=== PATIENT | male | born 1930 | race Caucasian/White ===

== ENCOUNTER 2017-08-27 21:09 | Inpatient (IN) | payer MEDICARE ==
[~2017-08-27] VITALS: Ht 177.8 cm; Wt 80.5 kg
--- NOTE | ~2017-08-27 | OP ---
PATIENT NAME: DAISHA VARELA MEDICAL RECORD: [id number] :34 LOCATION:D.M2 D.2123 ADMISSION DATE:08/27/17 SURGEON: SYLVIE RYAN MD DATE OF OPERATION: 09/07/2017 PROCEDURES: 1. PTCA stent RCA. 2. PTCA stent PLV. 3. Selective coronary angiography. INDICATION: Angina and coronary artery disease. PROCEDURE IN DETAIL: After informed consent was obtained and after a detailed explanation of risks, benefits as well as alternative therapies, the patient elected to proceed with angiogram and angioplasty. The right femoral area was prepped and draped in normal sterile fashion. Right femoral artery was cannulated via modified Seldinger technique with placement of 7-German sheath. All catheters exchanged through this sheath. FINDINGS: The right coronary artery has 80% stenosis in the mid vessel. The PLV has a 95% stenosis. The PLV was addressed with a 2.5 x 38 mm Beverly, right coronary with a 3.5 x 22 mm Beverly. Result was 0% residual stenosis. OVERALL IMPRESSION: Successful percutaneous transluminal coronary angioplasty stent of the RCA and PLV, both going from 80% to 95% initial stenosis to 0% residual stenosis. TRANSINT:[id number] Voice Confirmation ID: [id number] DOCUMENT ID: [id number] SYLVIE RYAN MD at 1202 CC: [id number] DICTATION DATE: 09/07/17 1413 MASH GRINDER: 09/07/17 1426 DIS IN 09/08/17 [place] [address]
--- NOTE | ~2017-08-27 | DS ---
PATIENT:DAISHA VARELA :34 MEDICAL RECORD: [id number] DISCHARGE SUMMARY ADMISSION DATE: 08/27/17 DISCHARGE DATE: 09/08/17 DISCHARGE DIAGNOSES: 1. Angina. 2. Coronary artery disease. 3. PTCA stent left circumflex this admission. 4. Aortic stenosis. 5. Shortness of breath. 6. Hypertension. 7. Hyperlipidemia. HOSPITAL COURSE: Mr. Varela presents with anginal symptomatology, found to have significant disease of the left circumflex, underwent successful PTCA stent of the left circumflex, discharged home with the addition of aspirin and Plavix to his medical regimen. He will follow up with [facility] in 1 month. TRANSINT:[id number] Voice Confirmation ID: [id number] DOCUMENT ID: [id number] SYLVIE RYAN MD at 1351 CC: [id number] DICTATION DATE: 10/23/17 1012 SMOKING PIPE DRILLER AND THREADER: 10/24/17 0122 DIS IN 09/08/17 [place] [id number] [place] [address]
--- NOTE | ~2017-08-27 | HEMODYNAMI ---
PATIENT:DAISHA VARELA MEDICAL RECORD: [id number] : 34 LOCATION:[address] ADMISSION DATE: 08/27/17 Generatedon:09/07/201714:18 Patient name: DAISHA VARELA Patient #: [id number] SSN: : 1930 Date of study: 09/07/2017 Page: Of Hemodynamic Procedure Report Patient Data Patient Demographics Procedure consent was obtained First Name: DAISHA Gender: Male Last Name: NICHOLE : 1930 Patient #: [id number] Age: 87 year(s) Race: Unknown Additional ID: [id number] Contact details [address]: [address] [place] [address] State: [place] City: [place] Zip code: [address] Past Medical History Allergies: No known allergies Admission Admission Data Admission Date: 08/27/2017 Admission Time: 21:09 Room #: 2123 Procedure Procedure Types Cath Procedure PCI Procedure Coronary Stent Coronary Stent Initial Coronary Stent Additional Procedure Description Procedure Date Procedure Date: 09/07/2017 Procedure Start Time: 14:00 Procedure End Time: 14:12 Procedure Staff Name Function Manuel Morris MD Performing Physician Tonia Galicia RT Monitor Steffi Lockett RT Scrub Rivera Saravia RN Nurse Procedure Data Cath Procedure Fluoroscopy Diagnostic fluoroscopy Total fluoroscopy Time: 3.4 time: 3.4 min min Diagnostic fluoroscopy Total fluoroscopy dose: 540 dose: 540 mGy mGy Contrast Material Contrast Material Type Amount (ml) Isovue 300 54 Entry Location Entry Primary Successful Side Size Upsize Upsize Entry Closure Succes sful Closure Location (Fr) 1 (Fr) 2 (Fr) Remarks Device Remarks Femoral Right 7 Fr Exoseal artery Short Estimated blood loss: 5 ml Procedure Complications No complications Procedure Medications Medication Administration Route Dosage Oxygen NC 2 l/min Heparin Flush Bag added to field 2 bags (1000units/500ml NS) 0.9% NaCl I.V. 100 ml/hr Fentanyl I.V. 50 mcg Versed I.V. 1 mg Heparin Bolus I.V. 4000 units Fentanyl I.V. 50 mcg Versed I.V. 1 mg Hemodynamics Rest Heart Rate: 56 (bpm) Snapshots Pre Cath Intra NCS Post Cath Vital Signs Time Heart Resp SPO2 etCO2 NIBP (mmHg) Rhythm Pain Sedation Rate (ipm) (%) (mmHg) Status Level (bpm) 13:56:12 56 20 97 0 150/69(125) NSR 0 (11) 10(A) , No pain 14:00:32 56 17 98 0 155/70(121) NSR 0 (11) 9(A) , No pain 14:04:54 58 18 95 0 119/60(99) NSR 0 (11) 9(A) , No pain 14:09:04 56 16 95 0 130/65(105) NSR 0 (11) 9(A) , No pain Medications Time Medication Route Dose Verified Delivered Reason Notes Effectiveness by by 13:54:32 Oxygen NC 2 Manuel Stafford Per physician l/min Alexandra Saravia RN 13:54:41 Heparin Flush added 2 Manuel Stafford used for Bag to bags Alexandra Saravia RN procedure (1000units/500ml field NS) 13:54:54 0.9% NaCl I.V. 100 Manuel Stafford Per physician ml/hr Alexandra Saravia RN 13:57:37 Fentanyl I.V. 50 Manuel Stafford for sedation mcg Alexandra Saravia RN 13:57:43 Versed I.V. 1 mg Manuel Escamillay for sedation Alexandra Saravia RN 14:01:52 Heparin Bolus I.V. 4000 Manuel Stafford for units Alexandra Saravia RN anticoagulation 14:02:00 Fentanyl I.V. 50 Manuel Escamillay for sedation mcg Alexandra Saravia RN 14:02:07 Versed I.V. 1 mg Manuel Escamillay for sedation Alexandra Saravia RN Procedure Log Time Note 13:40:22 Tonia Galicia RT(R) sent for patient. Start room use. 13:54:08 Informed consent obtained and on chart 13:54:32 Oxygen 2 l/min NC was administered by Rivera Saravia RN; Per physician; 13:54:41 Heparin Flush Bag (1000units/500ml NS) 2 bags added to field was administered by Rivera Saravia RN; used for procedure; 13:54:43 Time tracking: Regular hours 13:54:47 Plan of Care:Hemodynamics will remain stable., Cardiac rhythm will remain stable., Comfort level will be maintained., Respiratory function will remain adequate., Patient/ family verbilizes understanding of procedure., Procedure tolerated without complication., Recovers from procedure without complications.. 13:54:52 Patient received from Med II to CCL 2 Alert and oriented. Tansferred to table in Supine position. 13:54:53 Warm blankets applied, and linda hugger turned on for patient comfort. 13:54:53 Correct patient and procedure confirmed by team. 13:54:54 0.9% NaCl 100 ml/hr I.V. was administered by Rivera Saravia RN; Per physician; 13:54:54 ECG and BP/O2 sat monitors applied to patient. 13:54:54 Vital chart was started 13:54:55 Baseline sample Acquired. 13:55:00 Rhythm: sinus rhythm 13:55:01 Full Disclosure recording started 13:55:05 H&P Date Dictated: 09/07/2017 Within 30 days and on chart., H&P Addendum completed by physician on day of procedure. (MUST COMPLETE FOR ALL OUTPATIENTS). 13:55:06 Pre-procedure instructions explained to patient. 13:55:07 Pre-op teaching completed and patient verbalized understanding. 13:55:09 Family in patients room. 13:55:11 Patient NPO since Midnight. 13:55:15 Is the patient allergic to Iodine/contrast media? No. 13:55:16 Was the patient premedicated? No 13:55:16 Is patient on blood thinner?Yes 13:55:19 ACC The patient was administered the following blood thiners within the last 24 hours: ACCPlavix 13:55:20 Patient diabetic? Yes. 13:55:22 If diabetic: On Metformin? No 13:55:24 Previous problem with sedation/anesthesia? No ? 13:55:26 Snore? Yes 13:55:26 Sleep apnea? Yes 13:55:27 Deviated septum? No 13:55:28 Opens mouth fully? Yes 13:55:29 Sticks out tongue? Yes 13:55:30 Airway obstruction? No ? 13:55:40 Dentures? Yes uppers in tight 13:55:44 Pre procedure: right dorsailis pedis pulse 1+ Palpable, but thready & weak; easily obliterated 13:55:46 Pre procedure: left dorsailis pedis pulse 1+ Palpable, but thready & weak; easily obliterated 13:55:56 Patient pain scale 0/10 ?. 13:56:08 IV patent on arrival in right forearm with 0.9% NaCl at O. 13:56:17 Lab results completed and on chart. 13:56:20 Right groin area was prepped with chlora-prep and draped in sterile fashion 13:56:21 Alarms reviewed by R. N. 13:56:21 Sharps counted by scrub and verified by R.N. 13:56:22 Physician arrived 13:56:22 --------ALL STOP TIME OUT------ 13:56:24 Final Timeout: patient, procedure, and site verified with staff and physician. All members of the team are in agreement. 13:56:26 Right groin site verified by team. 13:56:28 Physical assessment completed. ASA score P 2 - A patient with mild systemic disease as per Manuel Morris MD. 13:56:32 Sedation plan: IV Moderate Sedation Medication:Versed, Fentanyl 13:56:43 Use device set Femoral Dx 13:56:44 ACIST Syringe (05056) opened to sterile field. 13:56:44 Bag Decanter () opened to sterile field. 13:56:45 Medline Cath Pack ([id number]) opened to sterile field. 13:56:47 DIAGNOSTIC WIRE .035 260cm J wire (302685) opened to sterile field. 13:56:49 ACIST Hand Control (21282) opened to sterile field. 13:56:49 ACIST Manifold (35656) opened to sterile field. 13:56:51 Tegaderm 4 x 4 (1626W) opened to sterile field. 13:57:03 GUIDE 7FR HS II SH catheter ([id number]) opened to sterile field. 13:57:04 SHEATH 7FR [place] (LWW812) opened to sterile field. 13:57:15 CHOICE PT Extra Support 182cm wire ([id number]) opened to sterile field. 13:57:16 INFLATOR Merit BasixCompak (IP0142) opened to sterile field. 13:57:37 Fentanyl 50 mcg I.V. was administered by Rivera Saravia RN; for sedation; 13:57:43 Versed 1 mg I.V. was administered by Rivera Saravia RN; for sedation; 14:00:23 Procedure started. 14:00:29 Local anesthetic to right femoral artery with Lidocaine 2% by Manuel Morris MD.INITIAL ACCESS ONLY 14:00:38 A 7 Fr Short sheath was inserted into the Right Femoral artery 14:01:52 Heparin Bolus 4000 units I.V. was administered by Rivera Saravia RN; for anticoagulation; 14:02:00 Fentanyl 50 mcg I.V. was administered by Rivera Saravia RN; for sedation; 14:02:07 Versed 1 mg I.V. was administered by Rivera Saravia RN; for sedation; 14:02:28 6 Fr hs 2 sh guide catheter was inserted over the wire 14:02:36 choice pt wire advanced. 14:04:03 Inflation number: 1 A EUPHORA 2.5 x 30 Balloon ([id number]) was prepped and advanced across the R PAV, then inflated to 15 KALLIE for 0:10 (min:sec). 14:04:11 Inflation number: 2 The EUPHORA 2.5 x 30 Balloon ([id number]) was reinflated across the R PAV, to 15 KALLIE for 0:10 (min:sec). 14:05:06 Balloon removed over the wire. 14:05:53 Inflation Number: 3 A IAM RX 2.5 x 38 stent ([id number]) was prepped and advanced across the R PAV. The stent was deployed at 13 KALLIE for 0:10 (min:sec). 14:08:16 Inflation Number: 1 A IAM RX 3.5 x 22 stent ([id number]) was prepped and advanced across the Mid RCA. The stent was deployed at 15 KALLIE for 0:10 (min:sec). 14:08:19 Stent catheter was removed intact over wire. 14:08:20 Wire removed. 14:08:20 Guide catheter removed. 14:08:30 EXOSEAL 7Fr (EX700) opened to sterile field. 14:08:40 Sheath removed intact; hemostasis achieved with Exoseal to the Right Femoral artery. 14:08:42 Procedure ended.(Physican Out) 14:10:55 Fluoroscopy time 03.40 minutes. 14:11:01 Fluoroscopy dose: 540 mGy 14:11: Flurop Dose total: 540 14:11:07 Contrast amount:Isovue 300 54ml. 14:11:39 Sharps counted by scrub and verified by R.N. 14:11:41 Insertion/operative site no bleeding no hematoma. 14:11:44 Post-op/insertion site Right Femoral artery dressed using a 4 x 4 and Tegaderm. 14:11:46 Post right femoral artery:stable 14:11:48 Post Procedure Pulses reassessed and unchanged 14:11:50 Post procedure rhythm: unchanged. 14:11:53 Estimated blood loss: 5 ml 14:11:54 Post procedure instruction explained to patient.Patient verbalizes understanding. 14:11:54 Patient needs reinforcement of post procedure teaching. 14:12:14 Procedure type changed to Cath procedure, PCI procedure, Coronary Stent, Coronary Stent Initial, Coronary Stent Additional 14:12:14 Procedure and supply charges have been captured, reviewed, submitted and are correct. 14:12:18 Procedure Complication : No complications 14:12:20 Vital chart was stopped 14:12:22 See physician's report for complete and final results. 14:12:25 Report given to [facility] II. 14:12:27 Patient transfered to Med II with Stretcher. 14:12:29 Procedure ended. 14:12:29 Full Disclosure recording stopped 14:12:38 ACC-PCI Only Patient was given prescriptions, or instructed by Manuel Morris MD to start/continue the following medications upon discharge: Plavix 14:12:44 End room use (Document Last) Intervention Summary Intervention Notes Time ActionType Lesion and Equipment Used Action# Pressure Duration Attributes 14:04:03 Inflate R PAV EUPHORA 2.5 x 1 15 00:10 balloon 30 Balloon ([id number]) 14:04:11 Reinflate R PAV EUPHORA 2.5 x 2 15 00:10 balloon 30 Balloon ([id number]) 14:05:53 Place stent R PAV IAM RX 2.5 x 3 13 00:10 38 stent ([id number]) 14:08:16 Place stent Mid RCA IAM RX 3.5 x 1 15 00:10 22 stent ([id number]) Device Usage Item Name Manufacture Quantity Catalog Number Hospital Part Current M inimal Lot# / Charge Number Stock Stock Serial# Code ACIST Syringe Acist 1 86716 706550 222178 293897 2 0 (81175) Medical Systems Inc Bag Decanter Microtek 1 262020 21579 057781 5 () Medical Inc. Medline Cath Cardinal 1 [id number] 818165 15334 194617 5 Pack Health ([id number]) DIAGNOSTIC St Naman 1 281537 911507 616076 818081 3 0 WIRE .035 260cm J wire (375415) ACIST Hand Acist 1 05844 447664 998339 841451 5 Control Medical (61567) Systems Inc ACIST Manifold Acist 1 22707 534940 330043 434082 5 (54968) Medical Systems Inc Tegaderm 4 x 4 3M 1 1626W 703653 798759 105761 5 (1626W) GUIDE 7FR HS Medtronic 1 [id number] 736301 266587 600772 0 II SH catheter ([id number]) SHEATH 7FR Terumo 1 DJZ647 724868 863103 379257 5 [place] (HPB384) CHOICE PT [place] 1 [id number] 716507 139185 401062 5 Extra Support Scientific 182cm wire ([id number]) INFLATOR Merit Merit 1 VY7996 982063 585805 818047 1 5 Auto Secure (XQ3811) EUPHORA 2.5 x Medtronic 1 [id number] 065771 997942 960476 5 [id number] 30 Balloon ([id number]) IAM RX 2.5 x Medtronic 1 [id number] 725845 0539514 067310 5 [id number] 38 stent ([id number]) IAM RX 3.5 x Medtronic 1 [id number] 594916 9842600 170225 5 [id number] 22 stent ([id number]) EXOSEAL 7Fr Cardinal 1 EX700 301398 396022 344469 5 (EX700) Health Signature Audit [place] Stage Time Signature Unsigned Intra-Procedure 09/07/2017 Tonia Galicia 2:18:07 PM RT(R) Signatures Monitor : Tonia Galicia RT Signature : Date : Time : [address] [place] [address]
--- NOTE | ~2017-08-27 | HP ---
PATIENT: DAISHA VARELA MEDICAL RECORD: [id number] ACCOUNT: [id number] LOCATION:[address] : 32 ADMISSION DATE: 08/27/17 HISTORY AND PHYSICAL EXAMINATION DIAGNOSES: 1. Non-Q-wave myocardial infarction. 2. Coronary artery disease. 3. Status post coronary bypass graft surgery. 4. Status post aortic valve replacement tissue. HISTORY OF PRESENT ILLNESS: This is a gentleman who presented to [facility] with chest pain. The chest pain has been going on for quite some time, it came in an escalating worsening fashion. His troponin was positive. He is anemic with a hemoglobin of 9.0. PHYSICAL EXAMINATION: GENERAL APPEARANCE: Well-nourished, well-developed, appears stated age. Level of distress, comfortable. PSYCHIATRIC: Mental status, alert, normal affect. Orientation, oriented to time, place and person. EYES: Lids and conjunctiva, noninjected. No discharge, no pallor. ENT: Lips, teeth, gums, normal dentition. Oropharynx, no cyanosis, no pallor. NECK: Carotid arteries, bilateral normal upstroke, no bruits, no thrills. JUGULAR VEINS: No jugular venous pressure or distention. CERVICAL LYMPH NODES: Nontender, nonenlarged. THYROID: Not enlarged. Nontender. No nodules. LUNGS: Respiratory effort, unlabored. CHEST: Normal curvature. No thoracic deformity. No chest wall tenderness. Percussion, resonant. Auscultation, clear. No wheezes, no rales, no rhonchi. CARDIOVASCULAR: Precordial exam, nondisplaced. No heaves or pericardial thrills. Rate and rhythm, regular. Heart sounds, normal S1, normal S2. No S3, no gallop, no rub. Systolic murmur, not heard. Diastolic murmur, not heard. EXTREMITIES: No cyanosis, no edema. Peripheral pulses, full and equal in all extremities, except as noted. No bruits appreciated. ABDOMEN: Soft, nondistended. Normal aorta. No bruit. Nontender. No masses. Liver, nontender, no hepatomegaly. Spleen, nontender, no splenomegaly. MUSCULOSKELETAL: No joint tenderness. No joint swelling. No erythema. NEUROLOGICAL: Normal gait, normal strength, normal tone. SKIN: Warm and dry. REVIEW OF SYSTEMS: The patient reports easy bruising but reports no swollen glands. The patient reports no fever, no night sweats, no significant weight gain, no significant weight loss. No significant exercise tolerance. The patient reports no dry eyes, no irritation, no vision change. Patient reports no difficulty hearing and no ear pain. Patient reports no frequent nose bleeds or nose and sinus problems. Patient reports on arm pain on exertion. No shortness of breath while lying down. No history of heart murmur. Patient reports no cough, no wheezing or coughing up blood. Patient reports no abdominal pain, no vomiting. Normal appetite. No diarrhea and not vomiting blood. No nausea and no constipation. Patient reports no incontinence. No difficulty urinating. No hematuria. No increased frequency. Patient reports no muscle aches. No weakness, no arthralgias, no back pain. No swelling of the extremities. Patient reports no abnormal mole, no jaundice, no rashes. Reports no loss of consciousness. No weakness and no numbness. No seizures, dizziness, HISTORY AND PHYSICAL [id number] GREEN,DAISHA or headaches. The patient reports no depression, no sleep disturbance, feeling safe in a relationship and no alcohol abuse. Patient reports on fatigue. Reports no runny nose or sinus pressure. No itching, no hives, and no frequent sneezing. OVERALL IMPRESSION: Chest pain, non-Q-wave myocardial infarction and coronary artery disease. We will proceed with coronary angiography. Further care depends upon findings of the angiography. TRANSINT:[id number] Voice Confirmation ID: [id number] DOCUMENT ID: [id number] SYLVIE RYAN MD at 1153 CC: [id number] DICTATION DATE: 08/28/17 0757 DOWNSTREAM BIOMANUFACTURING TECHNICIAN: 08/28/17 0821 [facility] [place] [address] [place] [id number]
--- NOTE | ~2017-08-27 | EC ---
PATIENT:DAISHA VARELA DATE OF SERVICE: 08/27/17 SEX: M MEDICAL RECORD: [id number] DATE OF : 32 LOCATION:D.M2 D.212 AGE OF PATIENT: 87 ADMISSION DATE: 08/27/17 REFERRING PHYSICIAN: INTERPRETING PHYSICIAN: SYLVIE MORRIS MD ECHOCARDIOGRAM REPORT ECHO CHARGES 4 ECHO COMPLETE CLINICAL DIAGNOSIS: FL HX OF CABG/CAD ECHOCARDIOGRAPHIC MEASUREMENTS (adult normal given) AC root (d.<3.7cm) 3.5 cm LV Septum d (<1.2 cm> 1.6 cm Valve Excursion 1.5 cm LV Septum (systole) 1.7 cm Left Atria (s.<4.0cm> 4.5 cm LVPW d(<1.2cm) 1.3 cm RV (d.<2.3cm) 4.2 cm LVPW (sytole) 1.9 cm LV diastole(<5.6CM) 5.3 cm MV E-F(>70mm/sec) cm LV systole 3.4 cm LVOT Diameter 1.4 cm MV exc.(>10mm) 1.6 cm Est.ejection fraction (50-75%) % Pericardial Effusion N DOPPLER: LVIT cm/sec A 85.0 cm/sec E 112 cm/sec LA cm/sec RVSP 23 mmHg LVOT 235 cm/sec AOP1/2T m/s Asc. Ao 291 cm/sec RVOT 77 cm/sec RA cm/sec PA 137 cm/sec AV Gradient Peak 33.98mmHg AV Mean 21.11mmHg AV Area 1.4 cm MV Gradient Peak 6.99 mmHg MV Mean 2.93 mmHg MV Area cm COMMENTS: Diagnostics Tech: Tera HERNANDEZ Metal Extrusion Supervisor: 1 Dr. Morris TAPE# PACS DATE OF SERVICE: 08/28/2017 FINDINGS: 1. Left ventricular chamber size is within normal limits. Left ventricular systolic function is normal. Overall ejection fraction estimated at 55%. 2. Left atrium is enlarged at 4.5 cm. Right atrium and right ventricular chamber sizes are as well mildly dilated. 3. Valvular structures: Aortic valve demonstrates mild calcific aortic stenosis. Valve area calculates to 1.4 cm-squared. There is a gradient of 34 mm across the valve. The remaining valvular structures have normal structure ECHOCARDIOGRAM REPORT [id number] DAISHA VARELA and ike. 4. Doppler interrogation elsewise reveals moderate mitral regurgitation, mild tricuspid regurgitation. No other valvular insufficiency or stenosis. Pulmonary systolic pressure estimated at 23 mmHg. 5. No evidence of pericardial effusion or left ventricular thrombus. TRANSINT:[id number] Voice Confirmation ID: [id number] DOCUMENT ID: [id number] SYLVIE MORRIS MD at 1153 CC: [id number] DICTATION DATE: 08/28/17 1341 PORTABLE TRACK LINE MARKER: 08/28/17 1434 ADM IN [place] [id number] [place] [address]
--- NOTE | ~2017-08-27 | HEMODYNAMI ---
PATIENT:DAISHA VARELA MEDICAL RECORD: [id number] : 34 LOCATION[facility] [facility] [id number] ADMISSION DATE: 08/27/17 Generatedon:08/28/201716:01 Patient name: DAISHA VARELA Patient #: [id number] SSN: : 1930 Date of study: 08/28/2017 Page: Of Hemodynamic Procedure Report Patient Data Patient Demographics Procedure consent was obtained First Name: DAISHA Gender: Male Last Name: NICHOLE : 1930 Patient #: [id number] Age: 87 year(s) Race: Unknown Additional ID: [id number] Contact details [address]: [address] [place] [address] State: [place] City: [place] Zip code: [address] Past Medical History Allergies: No known allergies Admission Admission Data Admission Date: 08/27/2017 Admission Time: 21:09 Room #: [facility] Lab Results Lab Result Date: 08/28/2017 Lab Result Time: 0:00 Biochemistry Name Units Result Min Max BUN mg/dl 38 --(----)-* 7 18 Creatinine mg/dl 1.8 --(----)-* 0.6 1.3 CBC Name Units Result Min Max Hemoglobin g/dl 9 *-(----)-- 13.5 17.5 Procedure Procedure Types Cath Procedure Diagnostic Procedure LHC LHC w/Coronaries w/Grafts PCI Procedure Coronary Stent Coronary Stent Initial Miscellaneous Procedures Moderate Sedation up to 15 minutes Moderate Sedation up to 30 minutes Procedure Description Procedure Date Procedure Date: 08/28/2017 Procedure Start Time: 15:31 Procedure End Time: 15:57 Procedure Staff Name Function Rivera Saravia RN Nurse Manuel Morris MD Performing Physician Michael Villeda RT Scrub Monalisa Sullivan RT Monitor Steffi Lockett RT Monitor Procedure Data Cath Procedure Fluoroscopy Diagnostic fluoroscopy Total fluoroscopy Time: 3.7 time: 3.7 min min Diagnostic fluoroscopy Total fluoroscopy dose: 343 dose: 343 mGy mGy Contrast Material Contrast Material Type Amount (ml) Isovue 300 147 Entry Location Entry Primary Successful Side Size Upsize Upsize Entry Closure Succes sful Closure Location (Fr) 1 (Fr) 2 (Fr) Remarks Device Remarks Femoral Right 5 Fr 6 Fr Exoseal artery Short Estimated blood loss: 10 ml Diagnostic catheters Device Type Used For End Catheter Placement MULTIPACK Pigtail 5 Fr Procedure catheter MULTIPACK JL 4.0 5Fr Procedure catheter MULTIPACK 3DRC 5Fr Procedure catheter DIAGNOSTIC AR 1 MOD 5Fr Procedure catheter ([id number]) Procedure Complications No complications Procedure Medications Medication Administration Route Dosage Oxygen NC 2 l/min Heparin Flush Bag added to field 2 bags (1000units/500ml NS) 0.9% NaCl I.V. 100 ml/hr Fentanyl I.V. 50 mcg Versed I.V. 1 mg Fentanyl I.V. 50 mcg Versed I.V. 1 mg Heparin Bolus I.V. 4000 units Integrilin (Bolus I.V. 8.5 ml 2mg/ml) Plavix P.O. 600 mg Hemodynamics Rest HGB: 9 (g/dl) Heart Rate: 75 (bpm) Snapshots Pre Cath Intra NCS Post Cath Vital Signs Time Heart Resp SPO2 etCO2 NIBP (mmHg) Rhythm Pain Sedation Rate (ipm) (%) (mmHg) Status Level (bpm) 15:05:51 75 17 90 1.5 140/75(113) NSR 0 (11) 10(A) , No pain 15:10:33 70 20 86 0 142/66(103) NSR 0 (11) 10(A) , No pain 15:15:14 71 22 93 3.7 129/70(109) NSR 0 (11) 10(A) , No pain 15:19:53 70 26 89 0 125/67(99) NSR 0 (11) 10(A) , No pain 15:25:10 66 19 92 0 143/65(109) NSR 0 (11) 10(A) , No pain 15:29:53 65 17 80 24.8 136/59(96) NSR 0 (11) 9(A) , No pain 15:34:34 69 17 84 16.5 134/65(102) NSR 0 (11) 9(A) , No pain 15:39:12 72 17 90 18 137/70(101) NSR 0 (11) 9(A) , No pain 15:43:53 74 16 83 26.2 128/67(100) NSR 0 (11) 9(A) , No pain 15:48:31 73 16 88 15.7 142/70(108) NSR 0 (11) 9(A) , No pain 15:53:12 74 16 91 19.5 144/72(112) NSR 0 (11) 9(A) , No pain 15:55:33 73 15 91 19.5 134/72(109) NSR 0 (11) 9(A) , No pain Medications Time Medication Route Dose Verified Delivered Reason Notes Effectiveness by by 14:42:35 Heparin Flush added 2 Manuel Rivera used for Bag to bags Alexandra Saravia RN procedure (1000units/500ml field NS) 15:07:26 Oxygen NC 2 Manuel Stafford Per physician l/min Alexandra Saravia RN 15:07:49 0.9% NaCl I.V. 100 Manuel Stafford Per physician ml/hr Alexandra Saravia RN 15:26:08 Fentanyl I.V. 50 Manuel Escamillay for sedation mcg Alexandra Saravia RN 15:26:15 Versed I.V. 1 mg Manuel Stafford for sedation Alexandra Saravia RN 15:32:51 Fentanyl I.V. 50 Manuel Escamillay for sedation mcg Alexandra Saravia RN 15:32:57 Versed I.V. 1 mg Manuel Stafford for sedation Alexandra Saravia RN 15:44:51 Heparin Bolus I.V. 4000 Manuel Stafford for units Alexandra Saravia RN anticoagulation 15:45:03 Integrilin I.V. 8.5 Manuel Stafford for (Bolus 2mg/ml) ml Alexandra Saravia RN anticoagulation 15:54:09 Plavix P.O. 600 Manuel Stafford for mg Alexandra Saravia RN antiplatelet therapy Procedure Log Time Note 14:40:59 Informed consent obtained and on chart 14:41:21 Diagnostic Cath status Elective 14:41:22 Time tracking: Regular hours 14:41:25 Plan of Care:Hemodynamics will remain stable., Cardiac rhythm will remain stable., Comfort level will be maintained., Respiratory function will remain adequate., Patient/ family verbilizes understanding of procedure., Procedure tolerated without complication., Recovers from procedure without complications.. 14:42:35 Heparin Flush Bag (1000units/500ml NS) 2 bags added to field was administered by Rivera Saravia RN; used for procedure; 14:55:30 Patient received from Med II to CCL 1 Alert and oriented. Tansferred to table in Supine position. 14:55:31 Warm blankets applied, and linda hugger turned on for patient comfort. 14:55:32 Correct patient and procedure confirmed by team. 14:55:33 ECG and BP/O2 sat monitors applied to patient. 14:57:20 H&P Date Dictated: 08/27/2017 Within 30 days and on chart.. 15:04:53 Vital chart was started 15:04:56 Baseline sample Acquired. 15:05:02 Rhythm: sinus rhythm 15:05:03 Full Disclosure recording started 15:05:04 Pre-op teaching completed and patient verbalized understanding. 15:05:04 Pre-procedure instructions explained to patient. 15:05:07 Family in patients room. 15:05:08 Patient NPO since Midnight. 15:05:13 Patient allergic to No known allergies 15:05:15 Is the patient allergic to Iodine/contrast media? No. 15:05:17 Patient diabetic? Yes. 15:05:19 If diabetic: On Metformin? No 15:05:22 Previous problem with sedation/anesthesia? No ? 15:05:23 Snore? Yes 15:05:24 Sleep apnea? No 15:05:25 Deviated septum? No 15:05:26 Opens mouth fully? Yes 15:05:27 Sticks out tongue? Yes 15:05:29 Airway obstruction? No ? 15:05:35 Dentures? Yes IN TIGHT 15:05:39 Pre procedure: right dorsailis pedis pulse 2+ Normal; easily identifiable; not easily obliterated 15:05:43 Patient pain scale 0/10 ?. 15:05:54 IV patent on arrival in right wrist with 0.9% NaCl at [facility]. 15:06:33 Lab Result : Hemoglobin 9 g/dl 15:06:33 Lab Result : Creatinine 1.8 mg/dl 15:06:33 Lab Result : BUN 38 mg/dl 15:06:48 PATIENT RECEIVED TRANSFUSION 15:06:52 Lab results completed and on chart. 15:06:56 Right groin area was prepped with chlora-prep and draped in sterile fashion 15::58 Sharps counted by scrub and verified by R.N. 15::58 Alarms reviewed by R. N. 15:: Procedure type changed to Cath procedure, Diagnostic procedure, LHC, LHC w/Coronaries w/Grafts, PCI procedure, Coronary Stent, Coronary Stent Initial, Miscellaneous Procedures, Moderate Sedation up to 15 minutes, Moderate Sedation up to 30 minutes 15::26 Oxygen 2 l/min NC was administered by Rivera Saravia RN; Per physician; 15:07:49 0.9% NaCl 100 ml/hr I.V. was administered by Rivera Saravia RN; Per physician; 15:12:04 Rivera aSravia RN sent for patient. Start room use. 15:13:02 Physician paged 15:22:38 --------ALL STOP TIME OUT------ 15:22:54 Zero performed for pressure channel P1 15:25:37 Physician arrived 15:25:39 Final Timeout: patient, procedure, and site verified with staff and physician. All members of the team are in agreement. 15:25:43 Right groin site verified by team. 15:26:00 Physical assessment completed. ASA score P 2 - A patient with mild systemic disease as per Manuel Morris MD. 15:26:04 Sedation plan: IV Moderate Sedation Medication:Versed, Fentanyl 15:26:08 Fentanyl 50 mcg I.V. was administered by Rivera Saravia RN; for sedation; 15::15 Versed 1 mg I.V. was administered by Rivera Saravia RN; for sedation; 15:28:17 Use device set Femoral Dx 15:28:19 ACIST Syringe (53328) opened to sterile field. 15:28:24 Bag Decanter (2002S) opened to sterile field. 15:28:27 Medline Cath Pack ([id number]) opened to sterile field. 15:28:28 SHEATH 5FR [place] (ODB326) opened to sterile field. 15:28:29 DIAGNOSTIC WIRE .035 260cm J wire (302001) opened to sterile field. 15:28:31 ACIST Hand Control (03727) opened to sterile field. 15:28:32 DIAGNOSTIC Multipack 5Fr catheter set (DL0683) opened to sterile field. 15:28:32 ACIST Manifold (49203) opened to sterile field. 15:28:33 Tegaderm 4 x 4 (1626W) opened to sterile field. 15:30:52 Procedure started. 15:31:05 Local anesthetic to right femoral artery with Lidocaine 2% by Manuel Morris MD.INITIAL ACCESS ONLY 15:32:04 A 5 Fr sheath was inserted into the Right Femoral artery 15:32:32 j wire advanced. 15:32:51 Fentanyl 50 mcg I.V. was administered by Rivera Saravia RN; for sedation; 15:32:57 Versed 1 mg I.V. was administered by Rivera Saravia RN; for sedation; 15:32:58 A MULTIPACK Pigtail 5 Fr catheter was advanced over the wire and used for Procedure. 15:35:25 LV angiography performed. 15:35:59 EF : 50 % 15:36:01 Catheter removed. 15:36:12 A MULTIPACK JL 4.0 5Fr catheter was advanced over the wire and used for Procedure. 15:36:17 LCA angiography performed. 15:37:28 Catheter removed. 15:37:40 A MULTIPACK 3DRC 5Fr catheter was advanced over the wire and used for Procedure. 15:38:43 NARVAEZ angiography performed. 15:39:40 RCA angiography performed. 15:39:44 Catheter removed. 15:39:59 A DIAGNOSTIC AR 1 MOD 5Fr catheter ([id number]) was advanced over the wire and used for Procedure. 15:40:36 SVG angiography performed. 15:40:48 SVG to RCA angiography performed. 15:41:38 Catheter removed. 15:42:03 INFLATOR Merit BasixCompak (KC3909) opened to sterile field. 15:42:04 CHOICE PT Extra Support 182cm wire ([id number]) opened to sterile field. 15:42:05 SHEATH 6FR [place] (RRS357) opened to sterile field. 15:42:27 Proceeding to intervention. 15:42:37 Sheath upsized to a 6 Fr Short. 15:43:21 6 Fr xbLAD4 guide catheter was inserted over the wire 15:43:32 CHOICE PT EX wire advanced. 15:44:49 GUIDE 6FR XBLAD 4.0 catheter ([id number]) opened to sterile field. 15:44:51 Heparin Bolus 4000 units I.V. was administered by Rivera Saravia RN; for anticoagulation; 15:44:56 Wire advanced across lesion. 15:45:03 Integrilin (Bolus 2mg/ml) 8.5 ml I.V. was administered by Rivera Saravia RN; for anticoagulation; 15:46:48 Inflation number: 1 A EUPHORA 2.5 x 20 Balloon ([id number]) was prepped and advanced across the Mid CX, then inflated to 13 KALLIE for 0:11 (min:sec). 15:47:05 Inflation number: 2 The EUPHORA 2.5 x 20 Balloon ([id number]) was reinflated across the Mid CX, to 17 KALLIE for 0:11 (min:sec). 15:49:01 Inflation Number: 3 A IAM RX 2.5 x 26 stent ([id number]) was prepped and advanced across the Mid CX. The stent was deployed at 13 KALLIE for 0:10 (min:sec). 15:49:32 Stent catheter was removed intact over wire. 15:51:21 Inflation Number: 1 A IAM RX 3.0 x 15 stent ([id number]) was prepped and advanced across the Prox CX. The stent was deployed at 17 KALLIE for 0:09 (min:sec). 15:51:30 EXOSEAL 6Fr (EX600) opened to sterile field. 15:51:34 Stent catheter was removed intact over wire. 15:51:35 Wire removed. 15:51:36 Guide catheter removed. 15:51:45 Sheath removed intact; hemostasis achieved with Exoseal to the Right Femoral artery. 15:53:34 Procedure ended.(Physican Out) 15:54:09 Plavix 600 mg P.O. was administered by Rivera Saravia RN; for antiplatelet therapy; 15:54:30 Fluoroscopy time 03.70 minutes. 15:54:45 Fluoroscopy dose: 343 mGy 15:54:45 Flurop Dose total: 343 15:54:52 Contrast amount:Isovue 300 147ml. 15:54:58 Insertion/operative site no bleeding no hematoma. 15:55:01 Post-op/insertion site Right Femoral artery dressed using a 4 x 4 and Tegaderm. 15:55:05 Post right femoral artery:stable 15:55:08 Post Procedure Pulses reassessed and unchanged 15:55:12 Post-procedure physical assessment completed. ASA score P 2 - A patient with mild systemic disease as per Manuel Morris MD. 15:55:15 Post procedure rhythm: sinus rhythm 15:55:19 Estimated blood loss: 10 ml 15:55:21 Post procedure instruction explained to patient.Patient verbalizes understanding. 15:55:25 Patient needs reinforcement of post procedure teaching. 15:57:01 Procedure and supply charges have been captured, reviewed, submitted and are correct. 15:57:21 Procedure Complication : No complications 15:57:24 Vital chart was stopped 15:57:25 See physician's report for complete and final results. 15:57:28 Report given to Pre/Post Procedure Room. 15:57:33 Patient transfered to Pre/Post Procedure Room with Bed. 15:57:35 Full Disclosure recording stopped 15:57:35 Procedure ended. 15:57:38 End room use (Document Last) Intervention Summary Intervention Notes Time ActionType Lesion and Equipment Used Action# Pressure Duration Attributes 15:46:48 Inflate Mid CX EUPHORA 2.5 x 1 13 00:11 balloon 20 Balloon ([id number]) 15:47:05 Reinflate Mid CX EUPHORA 2.5 x 2 17 00:11 balloon 20 Balloon ([id number]) 15:49:01 Place stent Mid CX IAM RX 2.5 x 3 13 00:11 26 stent ([id number]) 15:51:21 Place stent Prox CX IAM RX 3.0 x 1 17 00:09 15 stent ([id number]) Device Usage Item Name Manufacture Quantity Catalog Number Hospital Part Current M inimal Lot# / Charge Number Stock Stock Serial# Code ACIST Syringe Acist 1 12184 476419 731100 548873 2 0 (30675) Medical Systems Inc Bag Decanter Microtek 1 231025 54023 561824 5 () Medical Inc. Medline Cath Cardinal 1 [id number] 939970 48529 197588 5 Sympoz Health ([id number]) SHEATH 5FR Terumo 1 ACS169 025191 409744 404290 4 0 [place] (VYO809) DIAGNOSTIC St Naman 1 945337 038655 055317 163303 3 0 WIRE .035 260cm J wire (749467) ACIST Hand Acist 1 10736 278259 583110 770485 5 Control Medical (47749) Systems Inc ACIST Manifold Acist 1 76995 074627 726491 522146 5 (77829) Medical Systems Inc DIAGNOSTIC Cardinal 1 VI6938 672647 88808 493036 3 0 Multipack 5Fr Health catheter set (OY3443) Tegaderm 4 x 4 3M 1 1626W 714563 854398 642839 5 (1626W) MULTIPACK Cardinal 1 798599 5 Pigtail 5 Fr Health catheter MULTIPACK JL Cardinal 1 884621 5 4.0 5Fr Health catheter MULTIPACK 3DRC Cardinal 1 679079 5 5Fr catheter Health DIAGNOSTIC AR Cardinal 1 [id number] 813188 986392 192381 1 5 1 MOD 5Fr Health catheter (802661L) INFLATOR Merit Merit 1 ZI0981 251080 727995 381403 1 5 FreeWheel (HC3953) CHOICE PT [place] 1 [id number] 499049 901396 847219 5 Extra Support Scientific 182cm wire ([id number]) SHEATH 6FR Terumo 1 MTW875 749417 226982 855815 4 0 [place] (JNU680) GUIDE 6FR Cardinal 1 [id number] 067908 347675 191512 3 XBLAD 4.0 Health catheter (06641208) EUPHORA 2.5 x Medtronic 1 [id number] 462781 078850 840243 5 [id number] 20 Balloon ([id number]) IAM RX 2.5 x Medtronic 1 [id number] 482594 7026780 482649 5 [id number] 26 stent ([id number]) IAM RX 3.0 x Medtronic 1 [id number] 219479 0464731 346750 5 [id number] 15 stent ([id number]) EXOSEAL 6Fr Cardinal 1 EX600 627678 659930 692956 1 0 (EX600) Health Signature Audit [place] Stage Time Signature Unsigned Intra-Procedure 08/28/2017 Steffi Levy 4:00:59 PM RT(R) Signatures Monitor : Monalisa Sullivan Signature : RT Date : Time : Monitor : Steffi Ramirezur Signature : RT Date : Time : [place] [address] [place] [address]
--- NOTE | ~2017-08-27 | OP ---
PATIENT NAME: DAISHA VARELA MEDICAL RECORD: [id number] :34 LOCATION:D.M2 D.2123 ADMISSION DATE:08/27/17 SURGEON: SYLVIE RYAN MD DATE OF OPERATION: 08/28/2017 PROCEDURES: 1. PTCA and stent, left circumflex. 2. Left heart catheterization. 3. Selective coronary angiography. 4. Vein graft angiography. 5. NARVAEZ angiography. 6. Left ventriculogram. INDICATIONS: Non-Q-wave myocardial infarction, angina. PROCEDURE IN DETAIL: After informed consent was obtained and after detailed explanation of risks and benefits as well as alternative therapies, the patient elected to proceed with angiogram and angioplasty. The right femoral area was prepped and draped in normal sterile fashion. The right femoral artery was cannulated via modified Seldinger technique with placement of 6-Chinese sheath. All catheters were exchanged through this sheath. FINDINGS: Left ventriculogram was performed in standard 30-degree SARAVIA view, reveals good cardiac wall motion throughout all segments. Overall ejection fraction 55% to 60%. SELECTIVE CORONARY ANGIOGRAPHY: 1. Left main showed no significant angiographic disease. 2. 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 3. NARVAEZ to the LAD is widely patent. Distal LAD is widely patent. 4. The left circumflex has 95% stenosis proximally and in the mid vessel. 5. Vein graft to the circumflex is closed. 6. The right coronary has severe diffuse disease in the mid vessel as well as distal vessel, greater than 90%. 7. Vein graft to the right coronary is closed with acute large thrombus burden. PTCA AND STENT OF THE LEFT CIRCUMFLEX: The stents used were 3.0 x 15 and 2.5 x 26, both Reinholds stents. Result was 0% residual stenosis. OVERALL IMPRESSION: Successful PTCA and stent of the left circumflex, going from 95% initial stenosis to 0% residual stenosis. PLAN: PTCA and stent of the RCA in the a.m. TRANSINT:[id number] Voice Confirmation ID: [id number] DOCUMENT ID: [id number] SYLVIE RYAN MD at 1153 CC: [id number] DICTATION DATE: 08/28/17 1557 PURCHASING AND FISCAL CLERK: 08/28/17 1832 [place] [id number]
[2017-08-27 21:28] VITALS: BP 92/59; BMI 26.4
[2017-08-27 23:19] LABS: HEMATOCRIT 28.3 % (42.0-54.0); HEMOGLOBIN 9.1 g/dL (13.5-17.5); MCH 29.2 pg (26.0-34.0); MCHC 32.2 g/dL (31.0-37.0); MCV 90.7 fL (80.0-100.0); MEAN PLATELET VOLUME 9.9 fL (7.4-10.4); RBC 3.12 10x6/uL (4.20-6.10); RDW 14.6 % (11.5-14.5); WBC 5.8 10x3/uL (4.8-10.8)
[2017-08-27 23:24] LABS: INR 1.11 (0.85-1.17); PROTIME 13.9 SECONDS (11.6-15.0)
[2017-08-27 23:25] LABS: APTT 86.9 SECONDS (22.8-39.4)
[2017-08-28] VITALS: BP 92/59
[2017-08-28 04:00] VITALS: BP 137/63
[2017-08-28 05:43] LABS: BASOPHILS 0.4 % (0-2); EOSINOPHILS 0.2 % (0-7); HEMATOCRIT 28.5 % (42.0-54.0); IMMATURE GRANULOCYTES 0.4 % (0-5); LYMPHOCYTES 8.1 % (15-50); MCH 28.6 pg (26.0-34.0); MCHC 31.6 g/dL (31.0-37.0); MCV 90.5 fL (80.0-100.0); MEAN PLATELET VOLUME 10.7 fL (7.4-10.4); MONOCYTES 12.6 % (2-11); NEUTROPHILS 78.3 % (40-80); PLATELET COUNT 141 10x3/uL (130-400); RBC 3.15 10x6/uL (4.20-6.10); RDW 14.8 % (11.5-14.5); WBC 5.7 10x3/uL (4.8-10.8)
[2017-08-28 06:53] LABS: ANION GAP 15.3 mmol/L (8-16); BILIRUBIN - TOTAL 0.38 mg/dL (0.2-1.3); CALCIUM 8.8 mg/dL (8.5-10.1); CARBON DIOXIDE 25.9 mmol/L (21.0-32.0); CREATININE - SERUM 1.8 mg/dL (0.6-1.3); POTASSIUM - SERUM 4.2 mmol/L (3.5-5.1); PROTEIN - SERUM 6.7 g/dL (6.4-8.2)
[2017-08-28 08:06] VITALS: BP 137/68
[2017-08-28 11:14] VITALS: BP 101/641
[2017-08-28 11:55] LABS: CHOL - HDL RATIO 3.4 ratio (2.3-4.9); LDL-HDL RATIO 1.8 ratio (1.5-3.5)
[2017-08-28 12:50] VITALS: BMI 26.4
[2017-08-28 14:56] VITALS: BP 142/68
[2017-08-28 20:00] VITALS: BP 144/63
[2017-08-29] VITALS: BP 140/64
[2017-08-29 04:00] VITALS: BP 154/94
[2017-08-29] MEDS ORDERED: PROTONIX40 MG PO ×2 (06:35→06:36)
[2017-08-29] MEDS ORDERED: ZOCOR80 MG PO (06:36)
[2017-08-29] MEDS ORDERED: ONGLYZA5 MG PO (06:36)
[2017-08-29] MEDS ORDERED: CLOTRIM ANTIFUN15 GM TOPICAL (06:37)
[2017-08-29] MEDS ORDERED: LAMISIL250 MG PO (06:37)
[2017-08-29] MEDS ORDERED: VITAMIN B-121000 MCG PO (06:38)
[2017-08-29] MEDS ORDERED: STOOL SOFTENER240 MG PO (06:38)
[2017-08-29] MEDS ORDERED: NEURONTIN 300300 MG PO (06:39)
[2017-08-29] MEDS ORDERED: LASIX80 MG PO (06:39)
[2017-08-29] MEDS ORDERED: HYDROCODON-ACE1 EAC7 PO (06:40)
[2017-08-29] MEDS ORDERED: LANTUS INSULIN10 ML SC (06:40)
[2017-08-29] MEDS ORDERED: ISOSORBIDE MONO10 MG PO (06:42)
[2017-08-29] MEDS ORDERED: CLARITIN 10 MG10 MG PO (06:43)
[2017-08-29] MEDS ORDERED: MAGNESIUM OXID250 MG PO (06:43)
[2017-08-29] MEDS ORDERED: ROBAXIN-750750 MG (06:43)
[2017-08-29] MEDS ORDERED: PRINIVIL20 MG PO (06:43)
[2017-08-29] MEDS ORDERED: METOPROLOL TART50 MG PO (06:44)
[2017-08-29] MEDS ORDERED: REMERON15 MG PO (06:51)
[2017-08-29] MEDS ORDERED: NIFEDIPINE ER60 MG PO (06:52)
[2017-08-29] MEDS ORDERED: BACTROBAN CREAM15 GM TOPICAL (06:52)
[2017-08-29] MEDS ORDERED: NITROQUICK0.4 MG SL (06:53)
[2017-08-29 07:27] LABS: BASOPHILS 0.3 % (0-2); EOSINOPHILS 0.2 % (0-7); IMMATURE GRANULOCYTES 0.4 % (0-5); LYMPHOCYTES 6.9 % (15-50); MCH 28.8 pg (26.0-34.0); MCHC 31.9 g/dL (31.0-37.0); MCV 90.1 fL (80.0-100.0); MEAN PLATELET VOLUME 9.7 fL (7.4-10.4); MONOCYTES 9.7 % (2-11); NEUTROPHILS 82.5 % (40-80); RDW 14.8 % (11.5-14.5)
[2017-08-29 07:41] LABS: ALBUMIN 3.1 g/dL (3.4-5.0); ANION GAP 16.4 mmol/L (8-16); BILIRUBIN - TOTAL 0.62 mg/dL (0.2-1.3); CARBON DIOXIDE 23.3 mmol/L (21.0-32.0); CREATININE - SERUM 1.9 mg/dL (0.6-1.3); HEMOGLOBIN 11.3 g/dL (13.5-17.5); POTASSIUM - SERUM 4.7 mmol/L (3.5-5.1); PROTEIN - SERUM 7.3 g/dL (6.4-8.2); RBC 3.93 10x6/uL (4.20-6.10); WBC 10.5 10x3/uL (4.8-10.8)
[2017-08-29 07:42] LABS: HEMATOCRIT 35.4 % (42.0-54.0); PLATELET COUNT 189 10x3/uL (130-400)
[2017-08-29 08:04] VITALS: BP 152/88
[2017-08-29 11:04] VITALS: BP 148/82
[2017-08-29 14:39] VITALS: BP 140/80
[2017-08-29 20:39] VITALS: BP 110/56
[2017-08-30] VITALS: BP 140/67
[2017-08-30 04:53] VITALS: BP 124/60
[2017-08-30 06:00] LABS: BASOPHILS 0.3 % (0-2); EOSINOPHILS 4.4 % (0-7); HEMATOCRIT 30.9 % (42.0-54.0); HEMOGLOBIN 9.9 g/dL (13.5-17.5); IMMATURE GRANULOCYTES 0.4 % (0-5); LYMPHOCYTES 14.2 % (15-50); MCH 28.3 pg (26.0-34.0); MCV 88.3 fL (80.0-100.0); MEAN PLATELET VOLUME 10.2 fL (7.4-10.4); MONOCYTES 10.4 % (2-11); NEUTROPHILS 70.3 % (40-80); PLATELET COUNT 171 10x3/uL (130-400); RDW 14.5 % (11.5-14.5)
[2017-08-30 06:31] LABS: ALBUMIN 2.6 g/dL (3.4-5.0); ANION GAP 11.8 mmol/L (8-16); BILIRUBIN - TOTAL 0.36 mg/dL (0.2-1.3); CALCIUM 8.8 mg/dL (8.5-10.1); CARBON DIOXIDE 29.7 mmol/L (21.0-32.0); CREATININE - SERUM 1.9 mg/dL (0.6-1.3); POTASSIUM - SERUM 3.5 mmol/L (3.5-5.1); PROTEIN - SERUM 6.6 g/dL (6.4-8.2)
[2017-08-30 08:09] VITALS: BP 127/60
[2017-08-30 11:19] VITALS: BP 128/60
[2017-08-30 15:22] VITALS: BP 117/49
[2017-08-30 20:00] VITALS: BP 109/51
[2017-08-31] VITALS: BP 119/68
[2017-08-31 04:00] VITALS: BP 128/59
[2017-08-31 06:23] LABS: BASOPHILS 0.4 % (0-2); EOSINOPHILS 10.3 % (0-7); HEMATOCRIT 30.4 % (42.0-54.0); HEMOGLOBIN 9.7 g/dL (13.5-17.5); IMMATURE GRANULOCYTES 0.4 % (0-5); LYMPHOCYTES 14.9 % (15-50); MCH 28.5 pg (26.0-34.0); MCHC 31.9 g/dL (31.0-37.0); MCV 89.4 fL (80.0-100.0); MEAN PLATELET VOLUME 10.1 fL (7.4-10.4); PLATELET COUNT 186 10x3/uL (130-400); RDW 14.3 % (11.5-14.5); WBC 6.9 10x3/uL (4.8-10.8)
[2017-08-31 06:29] LABS: CALCIUM 8.3 mg/dL (8.5-10.1); CARBON DIOXIDE 28.6 mmol/L (21.0-32.0); CREATININE - SERUM 1.7 mg/dL (0.6-1.3); POTASSIUM - SERUM 3.6 mmol/L (3.5-5.1)
[2017-08-31 08:53] VITALS: BP 130/54
[2017-08-31 12:16] LABS: ANA REFLEX - ANTICHROMATIN ABS <0.2 AI (0.0-0.9); ANA REFLEX - CENTROMERE B ABS >8.0 AI (0.0-0.9); ANA REFLEX - DBL STRANDED DNA 2 IU/mL (0-9); ANA REFLEX - DIRECT Positive (Negative); ANA REFLEX - JO-1 AB <0.2 AI (0.0-0.9); ANA REFLEX - RNP ANTIBODIES 0.3 AI (0.0-0.9); ANA REFLEX - SCL-70 <0.2 AI (0.0-0.9); ANA REFLEX - SJOGRENS AB SSA 7.6 AI (0.0-0.9); ANA REFLEX - SJOGRENS AB SSB <0.2 AI (0.0-0.9); ANA REFLEX - SMITH AB <0.2 AI (0.0-0.9)
[2017-08-31 13:36] VITALS: BP 122/47
[2017-08-31 16:01] VITALS: BP 124/61
[2017-08-31 19:00] VITALS: BP 93/57
[2017-09-01] VITALS: BP 109/42
[2017-09-01 04:00] VITALS: BP 120/57
[2017-09-01 06:06] LABS: BASOPHILS 0.6 % (0-2); EOSINOPHILS 10.5 % (0-7); HEMATOCRIT 30.7 % (42.0-54.0); HEMOGLOBIN 9.7 g/dL (13.5-17.5); IMMATURE GRANULOCYTES 1.1 % (0-5); LYMPHOCYTES 17.5 % (15-50); MCH 28.4 pg (26.0-34.0); MCHC 31.6 g/dL (31.0-37.0); MEAN PLATELET VOLUME 9.7 fL (7.4-10.4); MONOCYTES 14.6 % (2-11); NEUTROPHILS 55.7 % (40-80); PLATELET COUNT 194 10x3/uL (130-400); RBC 3.41 10x6/uL (4.20-6.10); RDW 14.5 % (11.5-14.5); WBC 5.3 10x3/uL (4.8-10.8)
[2017-09-01 06:15] LABS: CALCIUM 8.6 mg/dL (8.5-10.1); CARBON DIOXIDE 29.8 mmol/L (21.0-32.0); CREATININE - SERUM 1.6 mg/dL (0.6-1.3); POTASSIUM - SERUM 3.8 mmol/L (3.5-5.1)
[2017-09-01 07:46] VITALS: BP 127/56
[2017-09-01 11:39] VITALS: BP 123/53
[2017-09-01 15:34] VITALS: BP 146/66
[2017-09-01 21:40] VITALS: BP 123/58
[2017-09-02 00:38] VITALS: Ht 177.8 cm; Wt 80.5 kg
[2017-09-02 00:47] VITALS: BP 127/54
[2017-09-02 05:39] LABS: BASOPHILS 0.8 % (0-2); EOSINOPHILS 11.3 % (0-7); HEMATOCRIT 30.7 % (42.0-54.0); HEMOGLOBIN 9.6 g/dL (13.5-17.5); IMMATURE GRANULOCYTES 1.2 % (0-5); LYMPHOCYTES 19.6 % (15-50); MCH 28.1 pg (26.0-34.0); MCHC 31.3 g/dL (31.0-37.0); MCV 89.8 fL (80.0-100.0); MEAN PLATELET VOLUME 9.3 fL (7.4-10.4); MONOCYTES 14.4 % (2-11); NEUTROPHILS 52.7 % (40-80); PLATELET COUNT 183 10x3/uL (130-400); RBC 3.42 10x6/uL (4.20-6.10); RDW 14.5 % (11.5-14.5); WBC 4.9 10x3/uL (4.8-10.8)
[2017-09-02 06:05] LABS: ANION GAP 12.6 mmol/L (8-16); CALCIUM 8.7 mg/dL (8.5-10.1); CARBON DIOXIDE 28.8 mmol/L (21.0-32.0); CREATININE - SERUM 1.4 mg/dL (0.6-1.3); POTASSIUM - SERUM 3.4 mmol/L (3.5-5.1)
[2017-09-02 06:44] VITALS: BP 138/61
[2017-09-02 08:11] VITALS: BP 163/63
[2017-09-02 11:26] VITALS: BP 171/68
[2017-09-02 16:53] VITALS: BP 166/74
[2017-09-02 20:00] VITALS: BP 167/98
[2017-09-03 05:57] LABS: BASOPHILS 0.8 % (0-2); EOSINOPHILS 11.8 % (0-7); HEMATOCRIT 30.7 % (42.0-54.0); HEMOGLOBIN 9.6 g/dL (13.5-17.5); IMMATURE GRANULOCYTES 1.8 % (0-5); LYMPHOCYTES 25.6 % (15-50); MCHC 31.3 g/dL (31.0-37.0); MCV 89.5 fL (80.0-100.0); MEAN PLATELET VOLUME 9.9 fL (7.4-10.4); MONOCYTES 14.6 % (2-11); NEUTROPHILS 45.4 % (40-80); PLATELET COUNT 207 10x3/uL (130-400); RBC 3.43 10x6/uL (4.20-6.10); RDW 14.5 % (11.5-14.5); WBC 4.9 10x3/uL (4.8-10.8)
[2017-09-03 06:00] VITALS: BP 133/57
[2017-09-03 06:19] LABS: ANION GAP 11.8 mmol/L (8-16); CALCIUM 8.2 mg/dL (8.5-10.1); CARBON DIOXIDE 28.9 mmol/L (21.0-32.0); CREATININE - SERUM 1.4 mg/dL (0.6-1.3); POTASSIUM - SERUM 3.7 mmol/L (3.5-5.1)
[2017-09-03 08:46] VITALS: BP 140/59
[2017-09-03 12:54] VITALS: BP 122/52
[2017-09-03 16:11] VITALS: BP 136/67
[2017-09-03 20:00] VITALS: BP 107/45
[2017-09-04] VITALS: BP 128/32
[2017-09-04 03:09] LABS: MYCOPLASMA PNEUMO IGG 844 U/mL (0-99)
[2017-09-04 04:51] LABS: HEMATOCRIT 29.8 % (42.0-54.0); HEMOGLOBIN 9.4 g/dL (13.5-17.5); IMMATURE GRANULOCYTES 3.3 % (0-5); LYMPHOCYTES 28.4 % (15-50); MCH 28.1 pg (26.0-34.0); MCHC 31.5 g/dL (31.0-37.0); MCV 89.2 fL (80.0-100.0); MEAN PLATELET VOLUME 9.6 fL (7.4-10.4); MONOCYTES 12.3 % (2-11); PLATELET COUNT 209 10x3/uL (130-400); RBC 3.34 10x6/uL (4.20-6.10); RDW 14.4 % (11.5-14.5); WBC 5.2 10x3/uL (4.8-10.8)
[2017-09-04 05:04] LABS: CALCIUM 8.1 mg/dL (8.5-10.1); CARBON DIOXIDE 27.9 mmol/L (21.0-32.0); CREATININE - SERUM 1.5 mg/dL (0.6-1.3); POTASSIUM - SERUM 3.9 mmol/L (3.5-5.1)
[2017-09-04 05:57] VITALS: BP 188/44
[2017-09-04 07:52] LABS: INR 1.05 (0.85-1.17); PROTIME 13.3 SECONDS (11.6-15.0)
[2017-09-04 09:37] VITALS: BP 134/72
[2017-09-04 11:50] VITALS: BP 148/69
[2017-09-04 12:16] LABS: MACROPHAGES BF 69 %; MESOTHELIALS BF 18 %; NEUT - BF 1 %
[2017-09-04 15:26] LABS: ANCA - ANTIMYELOPEROXIDASE <9.0 U/mL (0.0-9.0); ANCA - ANTIPROTEINASE 3 <3.5 U/mL (0.0-3.5); ANCA - ATYPICAL <1:20 titer (Neg:<1:20); ANCA - CYTOPLASMIC <1:20 titer (Neg:<1:20); ANCA - PERINUCLEAR <1:20 titer (Neg:<1:20); IMMUNOGLOBULIN E 25 IU/mL (0-100)
[2017-09-04 16:20] VITALS: BP 129/61
[2017-09-04 20:00] VITALS: BP 117/46
[2017-09-05] VITALS: BP 119/50
[2017-09-05 04:00] VITALS: BP 126/74
[2017-09-05 08:37] VITALS: BP 132/54
[2017-09-05 12:35] VITALS: BP 128/49
[2017-09-05 16:35] VITALS: BP 124/50
[2017-09-05 18:10] LABS: AFB SPECIMEN PROCESSING Not Indicated (())
[2017-09-05 20:12] VITALS: BP 136/61
[2017-09-06 02:32] VITALS: BP 106/42
[2017-09-06 06:23] VITALS: BP 111/46
[2017-09-06 07:39] VITALS: BP 136/53
[2017-09-06 11:56] VITALS: BP 139/55
[2017-09-06 15:32] VITALS: BP 122/41
[2017-09-06 20:00] VITALS: BP 147/45
[2017-09-07] VITALS: BP 146/50
[2017-09-07 08:26] VITALS: BP 132/50
[2017-09-07 11:13] VITALS: BP 153/64
[2017-09-07 11:20] LABS: FUNGUS STAIN Final report (())
[2017-09-07 20:54] VITALS: BP 116/48
[2017-09-08 01:29] VITALS: BP 111/42
[2017-09-08 05:08] VITALS: BP 133/46
[2017-09-08 08:34] VITALS: BP 135/42
[2017-09-08 13:23] VITALS: BP 115/43
[2017-09-08] MEDS ORDERED: PLAVIX75 MG PO (14:59)
[2017-09-08 16:51] VITALS: BP 134/48
[2017-10-02 16:14] LABS: FUNGUS MYCOLOGY CULTURE Final report (())
[2017-10-30 10:22] LABS: ACID FAST CULTURE Negative (()); ACID FAST SMEAR Negative (())
== END 2017-09-08 20:00 | DRG 246 ==
LOC: D.M2 21:09
PROVIDERS: Internal Medicine Interventional Cardiology; Internal Medicine Nephrology; Internal Medicine Pulmonary Disease; Specialist
PROC: 4A023N7 Measurement of Cardiac Sampling and Pressure, Left Heart, Percutaneous Approach (ICD-10-PCS; 2017-08-28)
PROC: B211YZZ Fluoroscopy of Multiple Coronary Arteries using Other Contrast (ICD-10-PCS; 2017-08-28)
PROC: B215YZZ Fluoroscopy of Left Heart using Other Contrast (ICD-10-PCS; 2017-08-28)
PROC: 4A023N7 Measurement of Cardiac Sampling and Pressure, Left Heart, Percutaneous Approach (ICD-10-PCS; 2017-08-28)
PROC: 027035Z Dilation of Coronary Artery, One Artery with Two Drug-eluting Intraluminal Devices, Percutaneous Approach (ICD-10-PCS; principal; 2017-08-28 14:00)
PROC: 02703ZZ Dilation of Coronary Artery, One Artery, Percutaneous Approach (ICD-10-PCS; 2017-08-28 14:00)
PROC: 0W993ZZ Drainage of Right Pleural Cavity, Percutaneous Approach (ICD-10-PCS; 2017-09-04)
PROC: 027135Z Dilation of Coronary Artery, Two Arteries with Two Drug-eluting Intraluminal Devices, Percutaneous Approach (ICD-10-PCS; 2017-09-07)
DX: I21.4 Non-ST elevation (NSTEMI) myocardial infarction (principal); I50.31 Acute diastolic (congestive) heart failure; J18.9 Pneumonia, unspecified organism; J96.01 Acute respiratory failure with hypoxia; J98.11 Atelectasis; I24.0 Acute coronary thrombosis not resulting in myocardial infarction; D64.9 Anemia, unspecified; K21.9 Gastro-esophageal reflux disease without esophagitis; E11.9 Type 2 diabetes mellitus without complications; R53.81 Other malaise; E87.6 Hypokalemia; I25.119 Atherosclerotic heart disease of native coronary artery with unspecified angina pectoris